=== PATIENT | male | born 1990 | race Caucasian/White ===

== ENCOUNTER 2017-08-16 19:29 | Emergency (ER) | payer OTHER ==
[2017-08-16 19:40] VITALS: RESP 18; TEMP 98.1
[2017-08-16] MEDS ORDERED: Sodium Chloride 0.9% 1,000 ML IV STA (20:18)
--- NOTE | 2017-08-16 20:29 | ED PDOC ---
HPI: Abdomen Time Seen by Provider: 08/16/17 20:15 Chief Complaint (Nursing): GI Problem Chief Complaint (Provider): Vomiting, epigastric pain History Per: Patient History/Exam Limitations: no limitations Onset/Duration Of Symptoms: Days Outside of [place] travel?: No Current Symptoms Are (Timing): Still Present Quality Of Discomfort: Dull, Burning Associated Symptoms: Nausea, Vomiting, Loss Of Appetite. denies: Fever, Chills , Urinary Symptoms Additional Complaint(s): 27 yo male with no medical problems presents with vomiting and epigastric pain. Pt reports drinking alcohol 3-4 days a week the last few months. Pt states he was "partying the last few days" and drinking daily. Pt denies urinary symptoms. Pt is not sexually active however masturbates regularly. Past Medical History Reviewed: Historical Data, Nursing Documentation, Vital Signs Vital Signs: Last Vital Signs Temp 98.1 F 08/16/17 19:37 Pulse 99 H 08/16/17 22:15 Resp 18 08/16/17 22:15 BP 156/91 H 08/16/17 22:15 Pulse Ox 100 08/16/17 22:15 - Medical History PMH: No Chronic Diseases - Surgical History Surgical History: No Surg Hx - Family History Family History: States: No Known Family Hx - Living Arrangements Living Arrangements: With Family - Social History Current smoker - smoking cessation education provided: No Alcohol: > 2 Drinks/Day - Home Medications Home Medications: Ambulatory Orders Medication Instructions Recorded Famotidine [Pepcid] 20 mg PO BID #28 tab 08/17/17 chlordiazePOXIDE [Chlordiazepoxide 25 mg PO DAILY #6 cap 08/17/17 HCl] - Allergies Allergies/Adverse Reactions: Allergies Allergy/AdvReac Type Severity Reaction Status Date / Time No Known Allergies Allergy Verified 08/16/17 19:37 Review of Systems ROS Statement: Except As Marked, All Systems Reviewed And Found Negative Constitutional: Negative for: Fever, Chills Gastrointestinal: Positive for: Nausea, Vomiting, Abdominal Pain Genitourinary Male: Negative for: Dysuria, Hematuria Musculoskeletal: Negative for: Neck Pain Neurological: Negative for: Weakness Physical Exam - Reviewed Nursing Documentation Reviewed: Yes Vital Signs Reviewed: Yes - Physical Exam Appears: Positive for: Well, Non-toxic, No Acute Distress Head Exam: Positive for: ATRAUMATIC, NORMAL INSPECTION, NORMOCEPHALIC Skin: Positive for: Normal Color, Warm, DRY Eye Exam: Positive for: Normal appearance. Negative for: Conjunctival injection , Scleral icterus ENT: Positive for: Normal ENT Inspection Neck: Positive for: Normal, Painless ROM Cardiovascular/Chest: Positive for: Regular Rate, Rhythm Respiratory: Positive for: CNT, Normal Breath Sounds Gastrointestinal/Abdominal: Positive for: Bowel Sounds, Soft, Tenderness (Mild epigastric ). Negative for: Normal Exam Back: Positive for: Normal Inspection. Negative for: L CVA Tenderness, R CVA Tenderness Extremity: Positive for: Normal ROM Neurologic/Psych: Positive for: Alert, Oriented - Laboratory Results Result Diagrams: 08/16/17 20:37 08/16/17 20:37 - ECG O2 Sat by Pulse Oximetry: 99 Medical Decision Making Medical Decision Making: Pt reports feeling better. Discussed librium for alcohol withdrawal. No beds currently available in [facility]. Disposition - Clinical Impression Clinical Impression: Gastritis, Alcohol withdrawal - Patient ED Disposition Is Patient to be Admitted: No - Disposition Disposition: Routine/Home Disposition Time: 02:32 Condition: STABLE Prescriptions: chlordiazePOXIDE [Chlordiazepoxide HCl] 25 mg PO DAILY #6 cap Famotidine [Pepcid] 20 mg PO BID #28 tab Instructions: Gastritis (ED), Alcohol Withdrawal (ED) Forms: [facility] (Amharic)
[2017-08-16 20:47] LABS: BASO # 0.1 K/uL (0.0-0.2); EOS % 0.3 % (0.0-4.0); HEMOGLOBIN 14.4 g/dL (12.0-18.0); LYMPH # 1.1 K/uL (1.0-4.3); LYMPH % 17.6 % (20.0-40.0); MEAN CELL VOLUME 101.1 fl (80.0-94.0); MEAN CORPUSCULAR HGB CONC 34.7 g/dL (33.0-37.0); MEAN PLATELET VOLUME 6.9 fl (7.2-11.7); MONO # 0.5 K/uL (0.0-0.8); MONO % 7.9 % (0.0-10.0); NEUT # 4.5 K/uL (1.8-7.0); NEUT % 73.2 % (50.0-75.0); NRBC % 0.1 % (0.0-0.0); RBC 4.12 Mil/uL (4.40-5.90); RED CELL DISTRIBUTION WIDTH 16.6 % (11.5-14.5); WHITE BLOOD COUNT 6.2 K/uL (4.8-10.8)
[2017-08-16 20:52] LABS: ALT/SGPT 59 U/L (21-72); AST/SGOT 74 U/L (17-59); BLOOD UREA NITROGEN 11 mg/dl (9-20); GFR AFRICAN-AMERICAN > 60; GFR NON-AFRICAN AMERICAN > 60; LIPASE 249 U/L (23-300)
[2017-08-16 20:53] LABS: ALB/GLOB RATIO 1.5 (1.0-2.1)
[2017-08-16 20:56] LABS: URINE BACTERIA RARE (<OCC); URINE BILIRUBIN NEGATIVE (NEGATIVE); URINE BLOOD SMALL (NEGATIVE); URINE CLARITY SLIGHTY-CLOUDY (Clear); URINE COLOR AMBER (YELLOW); URINE GLUCOSE (UA) NEG (Normal); URINE HYALINE CAST 0-2 /hpf (0-2); URINE LEUKOCYTE ESTERASE NEG Leu/uL (Negative); URINE NITRATE NEGATIVE (NEGATIVE); URINE PROTEIN 100 mg/dL (NEGATIVE)
[2017-08-16 20:57] LABS: BARBITURATES, UR NEGATIVE (NEGATIVE); BENZODIAZEPINES, UR NEGATIVE (NEGATIVE); OPIATES, UR NEGATIVE (NEGATIVE); PHENCYCLIDINE, UR NEGATIVE (NEGATIVE)
[2017-08-17 00:09] VITALS: O2SAT 99
[2017-08-17 00:48] VITALS: BP 156/90; PULSE 86
== END 2017-08-17 00:48 | disposition home or self-care (01) ==
LOC: H.ER 19:29
DX: K29.70 Gastritis, unspecified, without bleeding (principal); F10.239 Alcohol dependence with withdrawal, unspecified
CPT/HCPCS: 80053; 80320; 80324; 80345; 80346; 80349; 80353; 80358; 80361; 81003; 83690; 83992; 85025; 87086; 96361; 96374; 96375; 96376; 99284; J2060; J2405; J7040

== ENCOUNTER 2017-08-18 11:50 | Emergency (ER) | payer OTHER ==
[2017-08-18 11:53] VITALS: BP 153/105; PULSE 87; RESP 16; TEMP 98.1; O2SAT 100
[2017-08-18 11:54] VITALS: BMI 23.3
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
== END 2017-08-18 13:20 | disposition home or self-care (01) ==
LOC: H.ER 11:50
DX: Z11.3 Encounter for screening for infections with a predominantly sexual mode of transmission (principal)